=== PATIENT | female | born 1970 | race Caucasian/White ===

== ENCOUNTER 2020-09-27 11:30 | Inpatient (IN) | payer OTHER, MEDICARE ==
[~2020-09-27] VITALS: Ht 172.7 cm; Wt 118.5 kg
[2020-09-27] MEDS ORDERED: ACETAMINOPHEN 500 MG TABLET PO ONE (12:00)
[2020-09-27] MEDS ORDERED: PLEASE ENTER ALLERGIES MC SCH (12:00)
[2020-09-27] MEDS ORDERED: SODIUM CHLORIDE 0.9% 1,000ML IVBOLUS ONE (12:00)
[2020-09-27] MEDS ORDERED: SODIUM CHLORIDE FLUSH 10ML SYR IVF ONE (12:00)
[2020-09-27] MEDS ORDERED: ACETAMINOPHEN 500 MG TABLET ONE (12:03)
[2020-09-27 12:34] LABS: BASOPHILS % (AUTO) 0 % (0-1); EOSINOPHILS % (AUTO) 1 % (1-7); LYMPHOCYTES % (AUTO) 2 % (22-44); MEAN CORPUSCULAR HEMOGLOBIN 30.3 pg (27.0-34.8); MEAN CORPUSCULAR HGB CONC 33.7 g/dL (32.4-35.8); MONOCYTES % (AUTO) 6 % (2-9); PLATELET COUNT 241 x10^3/uL (130-400); RED CELL DISTRIBUTION WIDTH 13.9 % (9.6-15.2)
[2020-09-27 12:43] LABS: ALBUMIN 3.1 g/dL (3.4-5.0); ANION GAP 5 mmol/L (5-15); CALCIUM 9.2 mg/dL (8.5-10.1); CHLORIDE 102 mmol/L (98-107)
--- NOTE | 2020-09-27 12:43 | NUR ---
MULTIPLE ATTEMPTS TO PLACE PIV WITH NO SUCCESS. FEMI GRAYSON TO ATTEMPT US IV.
[2020-09-27 12:47] LABS: ALANINE AMINOTRANSFERASE 34 U/L (12-78); ALKALINE PHOSPHATASE 119 U/L (45-117); BILIRUBIN,TOTAL 0.5 mg/dL (0.2-1.0); CREATININE 0.86 mg/dL (0.55-1.02); TOTAL PROTEIN 7.1 g/dL (6.4-8.2)
[2020-09-27 13:34] LABS: MD YES
[2020-09-27 13:36] LABS: BAND#(MANUAL) 1.04 x10^3/uL; BANDS%(MANUAL) 7 % (0-7); BASOS#(MANUAL) 0.15 x10^3/uL (0-0.1); BASOS% (MANUAL) 1 % (0-1); LYMPHS% (MANUAL) 2 % (22-44); MONOS#(MANUAL) 1.19 x10^3/uL (0.3-2.7); MONOS% (MANUAL) 8 % (2-9); SEG#(MANUAL) 12.22 x10^3/uL (1.8-6.8); SEGS% (MANUAL) 82 % (42-75)
[2020-09-27 13:38] LABS: <PLATELET ESTIMATE> ADEQUATE; <PLT MORPHOLOGY> NORMAL PLT MORPH; <RBC MORPHOLOGY> NORMAL
[2020-09-27] MEDS ORDERED: CEFTRIAXONE PMX 1GM/50ML 50 ML ONE (13:46)
[2020-09-27] MEDS ORDERED: OXYcodone/APAP 5/325MG TABLET ONE (13:46)
[2020-09-27] MEDS ORDERED: OXYcodone/APAP 5/325MG TABLET PO ONE (14:00)
[2020-09-27] MEDS ORDERED: CEFTRIAXONE PMX 1GM/50ML 50 ML IV ONE (14:00)
[2020-09-27] MEDS ORDERED: PIPERACILLIN/TAZO/PMX 3.375GM 50 ML IV ONE (14:30)
[2020-09-27 14:47] LABS: MICROSCOPIC INDICATED
[2020-09-27] MEDS ORDERED: AZITHROMYCIN 500 MG in SODIUM CHLORIDE 0.9% 250 ML IV SCH (15:00)
[2020-09-27] MEDS ORDERED: hydrALAzine 20 MG/ML, 1ML IVPush PRN (15:00)
--- NOTE | 2020-09-27 15:02 | NUR ---
PT INCONTINENT OF URINE. EVERT AREA CLEANED. LINEN CHANGE AND PAD PLACED.
[2020-09-27 15:58] VITALS: BP 147/79
[2020-09-27] MEDS: ENOXAPARIN 40 MG/0.4 ML SQ SCH (16:00)
[2020-09-27 16:03] VITALS: BP 147/79
[2020-09-27] MEDS ORDERED: IMMU10VI SUBMUC (16:23)
[2020-09-27] MEDS ORDERED: LEVE500T53 PO (16:23)
[2020-09-27] MEDS ORDERED: METH1TAB21 PO (16:23)
[2020-09-27] MEDS ORDERED: TIOT18CA INH (16:23)
[2020-09-27] MEDS ORDERED: OMEP-110 PO (16:23)
[2020-09-27] MEDS ORDERED: SERT100T32 PO (16:23)
[2020-09-27] MEDS ORDERED: ACYC-114 PO (16:23)
[2020-09-27] MEDS ORDERED: FLUT1DIS5 IH (16:23)
[2020-09-27] MEDS: ACETAMINOPHEN 325 MG TABLET PO PRN (18:24)
[2020-09-27] MEDS: ONDANSETRON 2MG/ML, 2ML IVPush PRN (18:24)
[2020-09-27 19:45] VITALS: BP 125/77
[2020-09-27] MEDS: ACYCLOVIR 200 MG CAPSULE PO SCH (19:54)
[2020-09-27] MEDS: LEVETIRACETAM 500 MG TABLET PO SCH (19:54)
[2020-09-27 23:55] VITALS: BP 136/85
[2020-09-28] VITALS: BP 136/85
[2020-09-28] MEDS: ONDANSETRON 2MG/ML, 2ML IVPush PRN ×3 (00:03→14:59)
[2020-09-28] MEDS: ACETAMINOPHEN 325 MG TABLET PO PRN ×3 (00:03→10:32)
[2020-09-28 07:06] VITALS: BP 121/74
[2020-09-28 07:21] LABS: BASOPHILS % (AUTO) 0 % (0-1); EOSINOPHILS % (AUTO) 0 % (1-7); LYMPHOCYTES % (AUTO) 4 % (22-44); MEAN CORPUSCULAR HGB CONC 34.2 g/dL (32.4-35.8); MONOCYTES % (AUTO) 9 % (2-9); NEUTROPHILS % (AUTO) 87 % (42-75); PLATELET COUNT 206 x10^3/uL (130-400)
[2020-09-28 07:28] LABS: ANION GAP 5 mmol/L (5-15); CALCIUM 8.5 mg/dL (8.5-10.1); CHLORIDE 101 mmol/L (98-107); CREATININE 0.78 mg/dL (0.55-1.02); MD NO
[2020-09-28] MEDS ORDERED: CEFTRIAXONE PMX 2GM/50ML 50 ML IVPB SCH (09:00)
[2020-09-28] MEDS: LEVETIRACETAM 500 MG TABLET PO SCH ×2 (10:32→20:10)
[2020-09-28] MEDS ORDERED: ALBUTEROL-IPRATROPIUM MDI INH INH PRN (11:30)
[2020-09-28 12:25] VITALS: BP 122/73
[2020-09-28] MEDS: VANCOMYCIN PER PHARMACY MC SCH (13:30)
[2020-09-28] MEDS ORDERED: VANCOMYCIN 2,500 MG in SODIUM CHLORIDE 0.9% 250 ML IV ONE (14:30)
[2020-09-28] MEDS ORDERED: VANCOMYCIN 2,500 MG in SODIUM CHLORIDE 0.9% 500 ML IV ONE (14:30)
[2020-09-28] MEDS ORDERED: PHARMACOKINETIC MONITORING MC PRN (14:30)
[2020-09-28] MEDS ORDERED: PHARMACOKINETIC CONSULTATION MC ONE (14:30)
[2020-09-28] MEDS: OXYcodone IR 5MG TABLET PO PRN (14:36)
[2020-09-28] MEDS: ENOXAPARIN 40 MG/0.4 ML SQ SCH (16:00)
[2020-09-28] MEDS ORDERED: CALCIUM CARBONATE 500 MG TAB.CHEW PO PRN (20:00)
[2020-09-28] MEDS: TEMAZEPAM 15 MG CAPSULE PO PRN (20:10)
[2020-09-28] MEDS: ACYCLOVIR 200 MG CAPSULE PO SCH (20:10)
[2020-09-28 20:18] VITALS: BP 124/77
[2020-09-29 01:35] VITALS: BP 118/72
[2020-09-29] MEDS: OXYcodone IR 5MG TABLET PO PRN ×2 (01:37→15:45)
[2020-09-29] MEDS: VANCOMYCIN 1,900 MG in SODIUM CHLORIDE 0.9% 250 ML IV SCH ×2 (04:11→15:45)
[2020-09-29 06:43] VITALS: BP 113/73
[2020-09-29] MEDS: VANCOMYCIN PER PHARMACY MC SCH (08:27)
[2020-09-29] MEDS ORDERED: OMEPRAZOLE 20 MG CAPSULE.DR ONE (08:30)
[2020-09-29] MEDS: ACETAMINOPHEN 325 MG TABLET PO PRN (08:36)
[2020-09-29] MEDS: OMEPRAZOLE 20 MG CAPSULE.DR PO SCH (08:36)
[2020-09-29] MEDS: LEVETIRACETAM 500 MG TABLET PO SCH ×2 (08:36→20:33)
[2020-09-29] MEDS ORDERED: CEFTRIAXONE PMX 2GM/50ML 50 ML IVPB SCH (09:00)
[2020-09-29 11:19] LABS: BASOPHILS % (AUTO) 0 % (0-1); EOSINOPHILS % (AUTO) 0 % (1-7); LYMPHOCYTES % (AUTO) 8 % (22-44); MEAN CORPUSCULAR HEMOGLOBIN 30.8 pg (27.0-34.8); MEAN CORPUSCULAR HGB CONC 34.9 g/dL (32.4-35.8); MONOCYTES % (AUTO) 10 % (2-9); NEUTROPHILS % (AUTO) 81 % (42-75); PLATELET COUNT 221 x10^3/uL (130-400); RED BLOOD COUNT 3.26 x10^6/uL (3.82-5.3); RED CELL DISTRIBUTION WIDTH 13.8 % (9.6-15.2)
[2020-09-29 11:25] LABS: MD NO
[2020-09-29 11:28] LABS: CREATININE 0.81 mg/dL (0.55-1.02)
[2020-09-29 11:39] LABS: ANION GAP 4 mmol/L (5-15); CHLORIDE 101 mmol/L (98-107)
[2020-09-29 13:20] VITALS: BP 117/72
[2020-09-29] MEDS ORDERED: POTASSIUM CHLORIDE 20 MEQ TAB.ER.PRT PO ONE ×2 (15:00→17:00)
[2020-09-29] MEDS ORDERED: KETOROLAC 30 MG/1 ML IM PRN (15:00)
[2020-09-29] MEDS: ENOXAPARIN 40 MG/0.4 ML SQ SCH (16:00)
[2020-09-29 20:26] VITALS: BP 112/73
[2020-09-29] MEDS: ACYCLOVIR 200 MG CAPSULE PO SCH (20:33)
[2020-09-29] MEDS: TEMAZEPAM 15 MG CAPSULE PO PRN (20:33)
[2020-09-30 01:11] VITALS: BP 115/75
[2020-09-30] MEDS: OMEPRAZOLE 20 MG CAPSULE.DR PO SCH (05:17)
[2020-09-30 05:18] LABS: HCT (SEDRATE) 30.9 % (34.6-47.8)
[2020-09-30] MEDS: LEVETIRACETAM 500 MG TABLET PO SCH (07:20)
[2020-09-30] MEDS ORDERED: DAPTOMYCIN 700 MG in SODIUM CHLORIDE 0.9% 100 ML IV SCH (08:00)
[2020-09-30 09:20] VITALS: BP 109/75
[2020-09-30] MEDS ORDERED: OXYC5TAB3 PO (15:46)
[2020-09-30] MEDS: ENOXAPARIN 40 MG/0.4 ML SQ SCH (16:00)
== END 2020-09-30 17:46 | disposition home or self-care (01) | DRG 871 ==
LOC: ED 13:32 → SUATTDRO 14:12 → EDIP 14:50 → 4WST 15:56 → 3N 09-29 14:31
PROVIDERS: ADMIT Hospitalist; ATTEND Hospitalist
PROC: 0T9B70Z Drainage of Bladder with Drainage Device, Via Natural or Artificial Opening (ICD-10-PCS; principal; 2020-09-27)
PROC: 02HV33Z Insertion of Infusion Device into Superior Vena Cava, Percutaneous Approach (ICD-10-PCS; 2020-09-30)
PROC: B548ZZA Ultrasonography of Superior Vena Cava, Guidance (ICD-10-PCS; 2020-09-30)
DX: A41.81 Sepsis due to Enterococcus (principal); B00.4 Herpesviral encephalitis; J18.0 Bronchopneumonia, unspecified organism; J96.01 Acute respiratory failure with hypoxia; D83.9 Common variable immunodeficiency, unspecified; E87.1 Hypo-osmolality and hyponatremia; N10 Acute pyelonephritis; B95.2 Enterococcus as the cause of diseases classified elsewhere; Z20.822 Contact with and (suspected) exposure to COVID-19; D63.8 Anemia in other chronic diseases classified elsewhere; E66.01 Morbid (severe) obesity due to excess calories; G40.909 Epilepsy, unspecified, not intractable, without status epilepticus; K25.9 Gastric ulcer, unspecified as acute or chronic, without hemorrhage or perforation; Z79.899 Other long term (current) drug therapy; Z68.39 Body mass index [BMI] 39.0-39.9, adult; Z82.49 Family history of ischemic heart disease and other diseases of the circulatory system; Z82.5 Family history of asthma and other chronic lower respiratory diseases; Z90.710 Acquired absence of both cervix and uterus; Z90.722 Acquired absence of ovaries, bilateral; Z90.49 Acquired absence of other specified parts of digestive tract; Z86.73 Personal history of transient ischemic attack (TIA), and cerebral infarction without residual deficits
CPT/HCPCS: 36415; 36573; 71045; 80048; 80053; 81001; 82550; 82728; 83605; 83615; 84145; 85025; 85379; 85651; 86140; 87040; 87077; 87086; 87186; 93005; 96365; 96375; 99285; G0378; J0456; J0696; J0878; J1650; J2405; J2543; J3370; C1751; J7030; J7040; J7050; U0003